=== PATIENT | male | born 2000 | race Hispanic/Latino ===

== ENCOUNTER 2024-01-28 17:22 | Emergency (ER) | payer SELFPAY ==
[~2024-01-28] VITALS: Ht 172.7 cm; Wt 81.0 kg
[2024-01-28 17:30] VITALS: BP 142/72
[2024-01-28 17:45] VITALS: BP 148/82
[2024-01-28 18:15] LABS: URINE BLOOD DIPSTICK Negative (NEGATIVE); URINE GLUCOSE - DIPSTICK Negative (NEGATIVE); URINE KETONE Trace mg/dL (NEGATIVE); URINE LEUK ESTERASE Negative (NEGATIVE); URINE NITRITE - DIPSTICK Negative (Negative); URINE PH 5.5 (4.5-8.0); URINE PROTEIN - DIPSTICK Negative (NEG-TRACE); URINE SPECIFIC GRAVITY >=1.030; URINE UROBILINOGEN - DIPSTICK 0.2 E.U./dL (0.2)
[2024-01-28 18:16] LABS: URINE COLOR Yellow
[2024-01-28] MEDS ORDERED: NAPROXEN500 MG PO (18:38)
[2024-01-28 18:42] VITALS: BP 148/82
== END 2024-01-28 18:43 | disposition home or self-care (01) | DRG 395 ==
LOC: ED 17:22
PROVIDERS: Nurse Practitioner
DX: K40.30 Unilateral inguinal hernia, with obstruction, without gangrene, not specified as recurrent (principal)

== ENCOUNTER 2024-07-09 15:46 | Emergency (ER) | payer SELFPAY ==
[~2024-07-09] VITALS: Ht 172.7 cm; Wt 88.0 kg
[~2024-07-09 15:46] MED LIST: NAPROXEN500 MG PO
[2024-07-09 15:55] VITALS: BP 129/74
[2024-07-09 16:22] LABS: BASO% 0.3 % (0-3); EOS% 1.1 % (0-8); HEMATOCRIT 45.6 % (39.0-50.0); HEMOGLOBIN 16.3 g/dl (14.0-18.0); IMMATURE GRANULOCYTES 0.3 % (0.0-5.0); LYMPH% 19.6 % (15-41); MEAN CELL VOLUME 87.4 fL CALC (80.0-100.0); MEAN CORPUSCULAR HGB 31.2 pG CALC (26.0-32.0); MEAN CORPUSCULAR HGB CONC 35.7 g/dL CAL (32.0-36.0); MONO% 6.1 % (2-13); NEUT# 6.59 thou/uL (1.82-7.42); NEUT% 72.6 % (42-76); RED BLOOD COUNT 5.22 mill/uL (4.70-6.10); RED CELL DISTRI WIDTH 11.7 % (11.5-15.5)
[2024-07-09 16:23] LABS: URINE BILIRUBIN - DIPSTICK Negative (NEGATIVE); URINE BLOOD DIPSTICK Negative (NEGATIVE); URINE GLUCOSE - DIPSTICK Negative (NEGATIVE); URINE KETONE 15 mg/dL (NEGATIVE); URINE LEUK ESTERASE Negative (NEGATIVE); URINE NITRITE - DIPSTICK Negative (Negative); URINE PROTEIN - DIPSTICK Negative (NEG-TRACE); URINE SPECIFIC GRAVITY >=1.030; URINE UROBILINOGEN - DIPSTICK 0.2 E.U./dL (0.2)
[2024-07-09 16:25] LABS: URINE COLOR Yellow
[2024-07-09 16:44] LABS: ALBUMIN 4.5 g/dL (3.2-5.0); BILIRUBIN, TOTAL 0.8 mg/dL (0.2-1.3); CREATININE 0.9 mg/dL (0.7-1.3); POTASSIUM 3.8 mmol/l (3.5-5.1); TOTAL PROTEIN 7.3 g/dL (6.3-8.2)
[2024-07-09] MEDS ORDERED: CEPHALEXIN500 M1 PO (17:48)
[2024-07-09] MEDS ORDERED: NAPROXEN500 MG PO (18:00)
[2024-07-09 18:34] VITALS: BP 129/74
== END 2024-07-09 18:34 | disposition home or self-care (01) | DRG 696 ==
LOC: ED 15:46
PROVIDERS: Family Medicine
DX: R30.0 Dysuria (principal); N50.812 Left testicular pain; N50.811 Right testicular pain